=== PATIENT | female | born 1935 | race Two or more races ===

== ENCOUNTER 2017-03-04 12:14 | Outpatient (CLI) | payer OTHER ==
--- NOTE | 2017-03-05 09:04 | Diagnostic Imaging Report ---
Indication: Dyspnea Comparison: None 2 views of the chest obtained. There is a large calcified mass in the right side of the abdomen just below the diaphragm. The appearance is unchanged the last study. There is cardiomegaly noted. No infiltrate identified. Bones are osteopenic. Impression: No acute findings. A large ovoid calcification projected over the right upper quadrant abdomen. This appears to be within the liver. Cross-sectional imaging may be helpful to light with further. However the finding is chronic.
== END 2017-03-04 14:14 | disposition home or self-care (01) ==
LOC: RAD 12:14
DX: R05 Cough (principal)
CPT/HCPCS: 71020

== ENCOUNTER 2017-05-22 14:15 | Outpatient (RCR) | payer MEDICARE, OTHER | END 2017-05-28 | disposition home or self-care (01) | LOC: PTY 14:15 | DX: M25.561 Pain in right knee (principal); Z96.651 Presence of right artificial knee joint; R53.1 Weakness | CPT/HCPCS: 97110; 97116; 97161; G8978; G8979 ==

== ENCOUNTER 2017-06-21 13:00 | Outpatient (RCR) | payer MEDICARE, OTHER | END 2017-06-27 | disposition home or self-care (01) | LOC: PTY 13:00 | DX: M25.561 Pain in right knee (principal); Z96.659 Presence of unspecified artificial knee joint; R53.1 Weakness | CPT/HCPCS: 97110; 97140; G8978; G8979 ==

== ENCOUNTER 2017-07-26 13:00 | Outpatient (RCR) | payer MEDICARE, OTHER | END 2017-07-28 | disposition home or self-care (01) | LOC: PTY 13:00 | DX: M25.561 Pain in right knee (principal); R53.1 Weakness; Z96.651 Presence of right artificial knee joint ==